=== PATIENT | male | born 1990 | race Caucasian/White ===

== ENCOUNTER 2022-03-28 11:52 | Emergency (ER) | payer BC ==
[2022-03-28] MEDS ORDERED: Diphtheria,Pertussis(Acell),Tetanus Vaccine 0.5 ML Syringe IM ONE (12:18)
[2022-03-28] MEDS ORDERED: Bacitracin Oint 1 GM U/D Packet TOP ONE (12:53)
[2022-03-28] MEDS ORDERED: Acetaminophen/Codeine 300-30 MG Tab PO ONE (13:04)
== END 2022-03-28 13:42 | disposition home or self-care (01) ==
LOC: JP.ED 11:52
DX: S62.396A Other fracture of fifth metacarpal bone, right hand, initial encounter for closed fracture (principal); Z20.822 Contact with and (suspected) exposure to COVID-19; W22.09XA Striking against other stationary object, initial encounter
CPT/HCPCS: 29125; 73130; 87635; 99204; 99283; A9270; C9803; U0002

== ENCOUNTER 2022-03-29 07:20 | Day surgery (SDC) | payer BC ==
[~2022-03-29 07:20] MED LIST: Bupivacaine 0.5% 30 ML SDV ONE
[2022-03-29] MEDS ORDERED: Midazolam 1 MG/ML 2 ML SDV ONE (07:29)
[2022-03-29] MEDS ORDERED: Propofol 200 MG/20 ML SDV ONE (07:29)
[2022-03-29] MEDS ORDERED: fentaNYL 100 MCG/2 ML SDV ONE ×2 (07:29→10:19)
[2022-03-29] MEDS ORDERED: Lidocaine 0.5% 50 ML SDV ONE (07:31)
[2022-03-29] MEDS ORDERED: Lactated Ringers 1,000 ML IV SCH (08:00)
[2022-03-29] MEDS ORDERED: Nozin Nasal Sanitizer NASBOTH ONE (08:00)
[2022-03-29] MEDS ORDERED: ceFAZolin 2 GM in Premix Bag 1 BAG IV ONE (08:30)
[2022-03-29] MEDS ORDERED: Dexamethasone 4 MG/ML SDV ONE (10:06)
[2022-03-29] MEDS ORDERED: Ondansetron 4 MG/2 ML SDV ONE (10:06)
[2022-03-29] MEDS ORDERED: Ketorolac 30 MG/ML SDV ONE (10:28)
[2022-03-29] MEDS ORDERED: Acetaminophen/HYDROcodone 325-5 MG Tab PO ONE (11:39)
== END 2022-03-29 12:29 | disposition home or self-care (01) ==
LOC: JP.SDS 07:20
PROVIDERS: ATTEND Specialist
DX: S62.316A Displaced fracture of base of fifth metacarpal bone, right hand, initial encounter for closed fracture (principal); J45.909 Unspecified asthma, uncomplicated; Z79.899 Other long term (current) drug therapy
CPT/HCPCS: 26608; 76000; A9270; C1713; J0690; J1100; J1885; J2250; J2405; J2704; J3010; J3490; J7120